=== PATIENT | female | born 1965 | race Two or more races ===

== ENCOUNTER 2021-10-17 13:39 | Outpatient (CLI) | payer OTHER | END 2021-10-17 23:59 | disposition home or self-care (01) | LOC: LAB 13:39 | PROVIDERS: ATTEND Specialist | DX: Z01.812 Encounter for preprocedural laboratory examination (principal); Z20.822 Contact with and (suspected) exposure to COVID-19 | CPT/HCPCS: C9803; U0003 ==

== ENCOUNTER 2021-10-28 05:06 | Inpatient (IN) | payer OTHER ==
[2021-10-28] VITALS (14 sets, daily range): BP systolic 100–150; BP diastolic 58–86
[~2021-10-28] VITALS: Ht 149.9 cm; Wt 92.1 kg
--- NOTE | 2021-10-28 05:11 | NUR ---
GAS PRODUCER NOTES ADMITTED THIS 56 YO FEMALE PATIENT FROM HOME; AMBULATORY WITH WALKER. PATIENT IS AWAKE, ALERT AND ORIENTED X4, MOHAWK SPEAKING. BREATHING IS EVEN AND NONLABORED. VS TAKEN AND RECORDED FOLLOWS: BP 150/86 MM HG, CT 69 BPM, RR 18 BPM, TEMP 98.2, POX 96%. NOT IN ANY FORM OF RESPIRATORY DISTRESS. PATIENT IS FOR RIGHT TOTAL KNEE ARTHROPLASTY WITH CONSTRAINED PROSTHESIS. INFORMED CONSENT SIGNED BY THE PATIENT WITH PROCESS ENG AT BEDSIDE. ABLE TO MAKE NEEDS KNOWN. ALL BELONGINGS WRITTEN IN THE INVENTORY LIST. SAFETY MEASURES IMPLEMENTED: CALL LIGHT AND TABLE WITHIN REACH, SIDE RAILS UP X2, BED IN LOWEST LOCKED POSITION. WILL CONTINUE TO MONITOR.
[2021-10-28] MEDS ORDERED: ANESTHESIA TRAY IN PYXIS 1 EA TRAY MC ONE (05:53)
[2021-10-28] MEDS ORDERED: POLYMYXIN B SULFATE 500,000 UNITS ONE (05:53)
[2021-10-28] MEDS ORDERED: BUPIVACAINE 0.5 % PF 150 MG/30 ML VIAL ONE ×2 (05:53→06:29)
--- NOTE | 2021-10-28 06:11 | NUR ---
RN NOTES PATIENT WAS PICKED UP SURGERY STAFF.
[2021-10-28] MEDS ORDERED: HYDROMORPHONE INJ 2 MG/ML DISP.SYRIN ONE (06:28)
[2021-10-28] MEDS ORDERED: TRANEXAMIC ACID 3,000 MG in SODIUM CHLORIDE IRRIG SOLUTION 70 ML IR ONE (06:30)
[2021-10-28] MEDS ORDERED: FENTANYL PF 100MCG/2ML AMPUL ONE (08:55)
[2021-10-28] MEDS ORDERED: ACETAMINOPHEN 325 MG TABLET PO PRN (09:00)
[2021-10-28] MEDS ORDERED: ONDANSETRON HCL/PF 4 MG/2 ML VIAL IVP PRN (09:00)
[2021-10-28] MEDS ORDERED: HYDROCODONE/APAP 5/325MG TABLET PO PRN (09:00)
[2021-10-28] MEDS ORDERED: BISACODYL SUPP (10 MG) 10 MG/SUPP.RECT SUPP.RECT RC PRN (09:00)
[2021-10-28] MEDS ORDERED: DOCUSATE SODIUM 250 MG CAPSULE PO PRN (09:00)
[2021-10-28] MEDS ORDERED: hydrALAZINE HCL IV 20 MG VIAL ONE (09:15)
[2021-10-28] MEDS ORDERED: diphenhydrAMINE HCL 25 MG CAPSULE PO PRN (09:30)
[2021-10-28] MEDS ORDERED: HYDROMORPHONE 1 MG/1 ML DISP.SYRIN IM/IV/SC PRN (09:30)
[2021-10-28] MEDS ORDERED: MAG HYDROX/AL HYDROX/SIMETH 30 ML UDC PO PRN (09:30)
[2021-10-28] MEDS ORDERED: MENTHOL/CETYLPYRD (CEPACOL) 1 LOZ LOZENGE PO PRN (09:30)
[2021-10-28] MEDS ORDERED: CLONIDINE HCL 0.1 MG TABLET PO PRN (09:30)
--- NOTE | 2021-10-28 10:05 | NUR ---
RN ADMITTING NOTES: RECEIVED PATIENT FROM OPERATING ROOM S/P RIGHT KNEE TOTAL ARTHROPLASTY, ACCOMPANIED BY TRANSPORTER VIA BED. PATIENT ALERT, SLEEPY. CZECH SPEAKING A/O X3. DENIES PAIN AT THIS TIME. ON O2 INHALATION @ 2LPM VIA NC TOLERATING WELL FOR COMFORT. VS WNL BP 132/81, RR18, 96%,97.8f, ON CONTINUOUS VS MONITORING . RECEIVED REPORT FROM OPERATING ROOM NURSE. PATIENT NOTED WITH RIGHT HAND G#20 IV D5 1/2 NS @125ML/HR INFUSING WELL. NOTED WITH RIGHT KNEE DRESSING INTACT AND IMMOBILIZER,SECURED AND NO DISCHARGE NOTED. WILL MONITOR FOR ANY SIGNIFICANT CHANGES AND REPORT TO .
[2021-10-28] MEDS: IV D5/0.45 NACL 1,000 ML IV PRN ×2 (11:06→22:00)
--- NOTE | 2021-10-28 11:30 | NUR ---
RN NOTES: RESIDENT NOTED WITH NAUSEA AND VOMITING. NOTED WITH SCANTY VOMITUS YELLOWISH GREEN IN COLOR. OFFERED ICE CHIPS REFUSED. ELEVATED THE HEAD PART OF THE BED TURNED PATIENT TO SIDE. ZOFRAN IV GIVEN.
--- NOTE | 2021-10-28 11:32 | NUR ---
SS Note: Pt. is 56-year-old female that presents to the hospital for Post OP total knee arthroplasty. Pt. is alert and oriented x2/3. Per pt., she resides with her and son. Pt. uses a walker as needed. Pt. just got out of surgery this morning and is restless. CINDY was able to interview pt. for a minute and pt. asked to come back later. SW will follow-up at a later time.
[2021-10-28] MEDS: ANCEF 1 GM/50 ML D5W IV SCH ×4 (15:14→22:00)
--- NOTE | 2021-10-28 16:47 | NUR ---
RN NOTES: DR DEXTER ORDERED TO TRY NORCO WITH DINNER TO TEST NORCO DOSE FOR TOLERANCE AND EFFICACY.
--- NOTE | 2021-10-28 16:47 | NUR ---
RN NOTES: PATIENT ASKED FOR PANTOPRAZOLE 20MG PO TWO TIMES A DAY BEFORE BREAKFAST AND DINNER, MD MADE AWARE AND ORDERED PANTOPRAZOLE 20MG/CAP BID BEFORE MEALS. ORDER NOTED AND CARRIED OUT.
[2021-10-28] MEDS: PANTOPRAZOLE 40 MG TABLET.DR PO SCH ×3 (16:52→22:00)
[2021-10-28] MEDS: DOCUSATE SODIUM 100 MG CAPSULE PO SCH (17:00)
--- NOTE | 2021-10-28 18:30 | NUR ---
RN NOTES: (-) NAUSEA, ENCOURAGED PATIENT TO EAT DINNER. ABLE TO TOLERATE FOOD, HELPED THE PATIENT ABLE TO FINISHED 80% OF HER DINNER. INFORMED PATIENT I WILL GIVE HER PAIN MEDS PER MD ORDER. TRANSLATE AND PT VERBALIZED UNDERSTANDING.
[2021-10-28] MEDS: HYDROCODONE/APAP 10/325MG TABLET PO PRN (18:37)
--- NOTE | 2021-10-28 18:47 | NUR ---
MS RN CLOSING NOTES: PATIENT IN BED, WELSH SPEAKING. A/OX4 AND ABLE TO VERBALIZED NEEDS. IN BEDSIDE SALES TRAINING REPRESENTATIVE. NO SOB OR CARDIAC DISTRESS NOTED, CURRENTLY ON ROOM AIR AND TOLERATING WELL. WITH IV ACCESS ON R HAND G#20 INFUSING D5 1/2 NS @15ML/HR PATENT AND INTACT. WITH R KNEE DRESSING AND IMMOBILIZER, PATENT AND INTACT WITH NO SIGN OF ANY DISCHARGES. SAFETY PRECAUTION MAINTAINED: BED IN LOWEST AND LOCKED POSITION, CALL LIGHT IN EASY REACH FOR HELP/ASSISTANCE. WILL MONITOR FOR ANY SIGNIFICANT CHANGES. ENDORSED TO NEXT SHIFT FOR CONTINUITY OF CARE.
--- NOTE | 2021-10-28 19:30 | NUR ---
MS/RN OPENING NOTE RECEIVED PATIENT SLEEPING IN BED. FAMILY AT BEDSIDE. PATIENT IS ALERT AND ORIENTED X 4. PRIMARILY KINYARWANDA SPEAKING. DENIES PAIN AT THIS TIME. CONTINUES ON ROOM AIR WITH NO S/SX OF RESPIRATORY DISTRESS NOTED. IV ACCESS TO RIGHT HAND #20G INTACT AND PATENT. CONTINUES ON IVF D5 1/2 NS @ 125ML/HR. CONTINUES ON IV ABX POST-OP. CONTINUES ON REGULAR DIET WITH NO S/SX OF NAUSEA/VOMITING/ASPIRATION NOTED. CALL LIGHT WITHIN REACH. ASPIRATION, FALL AND SAFETY PRECAUTIONS MAINTAINED. ALL NEEDS ATTENDED TO AT THIS TIME.
[2021-10-28] MEDS ORDERED: ZOLPIDEM TARTRATE 5 MG TABLET PO PRN (22:00)
--- NOTE | 2021-10-29 06:40 | NUR ---
MS/RN CLOSING NOTE PATIENT CURRENTLY SLEEPING IN BED. ALERT AND ORIENTED X 4. PRIMARILY VIETNAMESE SPEAKING. DENIES PAIN AT THIS TIME. CONTINUES ON ROOM AIR WITH NO S/SX OF RESPIRATORY DISTRESS NOTED. IV ACCESS TO RIGHT HAND #20G INTACT AND PATENT. CONTINUES ON IVF D5 1/2 NS @ 125ML/HR. CONTINUES ON IV ABX POST-OP. CONTINUES ON REGULAR DIET WITH NO S/SX OF NAUSEA/VOMITING/ASPIRATION NOTED. CALL LIGHT WITHIN REACH. ASPIRATION, FALL AND SAFETY PRECAUTIONS MAINTAINED. ALL NEEDS ATTENDED TO AT THIS TIME. WILL ENDORSE PLAN OF CARE TO ONCOMING SHIFT RN.
[2021-10-29 07:05] LABS: HEMOGLOBIN 11.4 g/dL (11.5-14.8)
--- NOTE | 2021-10-29 07:33 | NUR ---
MS RN OPENING NOTE RECEIVED PATIENT AWAKE IN BED. PATIENT IS ALERT AND ORIENTED X 4 AND CYPRIOT SPEAKER. NO PAIN NOTED AT THIS TIME. ON ROOM AIR, NO S/SX OF RESPIRATORY DISTRESS NOTED. IV ACCESS TO RIGHT HAND #20G INTACT AND PATENT. CONTINUES ON IVF D5 1/2 NS @ 125ML/HR. NO NAUSEA/VOMITING/ASPIRATION NOTED. ALL SAFETY MEASURES IN PLACE .CALL LIGHT AND TABLE WITHIN REACH. ASPIRATION, FALL AND SAFETY PRECAUTIONS MAINTAINED. WILL CONTINUE TO MONITOR.
[2021-10-29] MEDS: PANTOPRAZOLE 40 MG TABLET.DR PO SCH ×2 (07:50→16:16)
[2021-10-29 08:00] VITALS: BP 117/70
[2021-10-29] MEDS ORDERED: PANT40TA49 PO (08:17)
[2021-10-29] MEDS: DOCUSATE SODIUM 100 MG CAPSULE PO SCH ×2 (09:11→16:16)
[2021-10-29] MEDS: ASPIRIN 325 MG TABLET PO SCH (09:11)
[2021-10-29] MEDS: HYDROCODONE/APAP 10/325MG TABLET PO PRN ×2 (09:11→15:25)
--- NOTE | 2021-10-29 13:58 | NUR ---
SS Consult: SS Consult requested for safe DC planning. The pt. is a 56-year-old female patient that was had a Right total knee Arthroplasty. Upon SS consult, the pt. is A&O x 4 and makes appropriate eye contact. The pt. appears well-groomed and presents with a euthymic mood and affect. Pt. denies current SI/HI and denies current hallucinations. Pt. has normal thought process and speech is WNL. Pt.s , is currently at bedside. CINDY gathered collateral information. CINDY explored pt.s living situation. Per the pt., her and her , Arnulfo Brunson [phone] and son reside at home [[address] [place] [address]]. Per pt.s daughter, Suzie Brunson [phone] the pt. has about 5 steps to get into her home and the pt. and family rather the pt. go to a SNF of [facility]. Noted. CINDY explored pt.s drug & ETOH use. Pt. denies drug or alcohol use. CINDY explored pt.s mental health Hx. Patient denies mental health diagnosis. SW explored if pt. received financial assistance. Pt. denies any financial assistance. Per, pt. she has a front wheel walker and a rollator walker at home and a shower chair but no wheelchair. CINDY provided pt. with resources including caregiving, transportation, meals, DME etc. Pt. thanked CINDY and state she will try to apply for disability benefits. Noted. Plan: Pt. stated she would like to go to an acute rehab unit or SNF. CINDY discussed with CM who stated that a document needs to be completed as pt. is here ddure to workers comp case. Noted. CINDY provided pt. with the following resources and she accepted them. ABUSE PREVENTION: ELDER ABUSE HOTLINE (15/12) ADULT PROTECTIVE SERVICES HOTLINE LONG-TERM CARE [facility] AREA ON AGING (HOTLINE) ADULT DAY HEALTH CARE CARE CENTERS: Private pay or Medi-cheri funded adult day care [facility] Day Health Care [facility] , [facility] , [facility] Adult [facility] Center , [facility] Day Health Care , [facility] Day Health Care , [facility] Adult Daycare Center , [facility] , [place] [facility] , [place] ALZHEIMERS DISEASE/DEMENTIA: Alzheimers Association Helpline [facility] Chapter www.alz.org/[facility] Department of Aging www.lacity.org Family Caregiver [place] www.caregiver.org [place] Caregiver Resources Center/Family Support www.[facility].org CANCER RESOURCES: [place] Cancer Society www.cancer.org Cancer Support Community www.CancerSupportVvsb.org: CancerCare www.cancercare.org [facility] Cancer Support [place] www.[facility].org COMMUNITY HEALTH ASSOCIATIONS: AARP www.aarp.org ALS Association (ask for Concepción) www.als.org [place] Diabetes Association www.diabetes.org [place] Heart Association www.heart.org Iceland[place] Lung Association www.lungusa.org Icelandic Parkinson Disease Association www.apdaparkinson.org [place] , www.redcross.org Arthritis Foundation www.arthritis.org Crohns & Colitis Foundation of [place]ic www.ccfa.org/chapters/carlos National Multiple Sclerosis Society www.nationalmssociety.org Myasthenia Gravis Foundation www.myasthenia-ca.org National Stroke Association www.stroke.org CONSERVATORSHIP & GUARDIANSHIP: AARP Conchita Orellana Legal Services Center for Health Care Rights Eldercare Information and Referral Pecan Grower Foundation [facility]: [facility] Referral Service [facility] Legal Services Office of the Public Guardian [place] EYESIGHT DISORDER RESOURCES: [place] Macular Degeneration Foundation [facility] www.[facility].org GRIEF AND BEREAVEMENT RESOURCES: The Gathering Place , [facility] THE HOPE Connection , [facility] Bere[facility]ment Center , [place] HEARING DISORDER RESOURCES: [place] Telephone Access Program Deaf and Disabled Telecommunications Program www.ddtp.cpu.ca.gov HearRx Hearing Centers ([place]) Better Hearing Systems , [place] GLAD ([facility] Agency on Deafness) V/ TTY; Cabinet Finisher , [facility] Hearing [facility] -low income hearing aid assistance www.HoozOnhearingfoundation.org [place] Hearing Care , Mariela HELP AT HOME CAREGIVER SUPPORT: In Home Support Services (Must have Medi-Cheri to be eligible) *Ask for a list of agencies that provide services to assist with care in the home. Local Senior Centers also have listings of care providers. HOME SAFETY MODIFICATIONS AND EQUIPMENT: Senior centers have additional referrals. [place] Housing and Community Investment Dept. Handyworker Program (low income) or Visit http://hcidla.lacity.org/hvi-zmbioh-vv for more information National Seating and Mobility and/or ; Forever Active www.foreverRegulatoryBindermed.com Stay Home Safe www.Stayhomesafe.com LIFE ALERT RESPONSE SYSTEM: Lifebooker.com Services 148-673-7450 www. Owlr Life Alert 013-946-0453 www.iHealth Labs Life Station 024-659-0580 www.KiwiTech Safe Return 168-302-2517 www.alz.or/safereturn Cell Phones for Seniors www.Second Genome MEALS AND FOOD PROGRAMS: [place] Meals on Wheels [phone] Welcome Meals on Wheels [phone] [facility] [phone] [place] to the Homebound [phone] [place] to the Homebound [phone] [facility] to the Homebound [phone] [facility] to the Homebound [phone] [facility] Montez [place] [phone] [facility] [phone] ONE Generation [phone] [facility] [phone] [facility] [phone] Meals on Wheels [phone] For all ages: $6.85/ meal w side. Delivered M-F from 10 am-1pm. Application and payment is done over the phone. Frozen meals available for weekends. Emergency Food [facility] [phone] Yazdanism Community Coordinator For High School [phone] [facility] [phone] Karlos Yazdanism[facility]- Brown bag lunches [phone] [facility] [phone] MEAL/GROCERY DELIVERY PROGRAMS: Meño Jovelmet Meals [phone]- [facility] [phone]- [facility] Magic Kitchen [phone] Moms Meals [phone] (ask Martínez for Discount Select grocery stores may provide delivery. MEDICAL INSURANCE SUPPORT SERVICES: Center for Health Care Rights [phone] Health Insurance Counseling/Advocacy Programs (HICAP)-Must have Medicare. Offers counseling for Medi-Cheri eligibility [phone] [facility] Public Community Coordinator For High School [phone] www.[facility].ca.gov Medicare [phone] www.socialsecurity.org Social Security [phone] SENIOR ACTIVITY PROGRAMS: *Contact a local senior center, adult school, recreation facility or community college for education, fitness, recreation, and social programs. Aquatic Therapy and Adapted Exercise programs through [facility] [phone] En[facility] at [facility] [phone] www.[facility] services/encore U- Senior Friends [phone] [place] Senior Programs [phone] www.oasisnet.org Suddenly 65 www.rgsjuxvn95.com SENIOR CENTERS: [facility] [phone] [facility] [place] [phone] [facility] [phone] [facility] [phone] [facility] [phone] [facility] [phone] [facility] [phone] [facility] [phone] One Generation, [facility] [phone] [facility] [phone] [facility] [phone] [facility] [phone] [facility] [phone] TRANSPORTATION: Local [facility] Centers may have applications for transportation programs and additional resources. ACCESS Services [phone] Transportation for seniors and disabled persons 7 days a week requiring 254 hr. advance reservation. Must apply and register for program bernard eligible. GRAM Acquisition [phone] or [phone] Transportation for seniors and persons with ADA card/metro disabled card in the [facility]. M-F only. Must register for services. ONE GENERATION [phone] Serves 65 years + in conjunction with TapMee program. Must be registered with both programs. A to B Transport [phone] Provides wheelchair/gurney van service. Adult Medical Transport [phone] Accepts Medi-cheri with prior authorization. Care Van [phone] Provides wheelchair Transport. [facility] Wide Transportation [phone] Provides gurney service Gentle [facility] [phone] Gurney Transport. [facility] Town Transportation [phone] wheelchair & gurney transport D Transportation [phone] wheelchair & gurney transport [place] Non-Emergency Transport [phone] wheelchair & gurney transport [facility] Living [place] [phone] Short Term Transportation primarily for adults with disabilities on social security income. Nominal fee may apply and a reservation is required. 24Fundraiser.com Cab [phone] or [phone] ShareWithU [facility] [phone] [place] [address] Referral Services -[phone] For additional programs & services VETERANS RESOURCES: Submissions for Aid and Attendance should be done directly to Federal VA office locatd at : [address] [address] X110 National Caregiver Support Line [phone] [facility] Veterans Services Field Office [phone] [place] Department of Affairs [phone] Pension Inform
[2021-10-29 16:00] VITALS: BP 147/76
[2021-10-29] MEDS: IV D5/0.45 NACL 1,000 ML IV PRN (17:26)
--- NOTE | 2021-10-29 18:24 | NUR ---
MS RN CLOSING NOTE RECEIVED PATIENT AWAKE IN BED. PATIENT IS ALERT AND ORIENTED X 4 AND ALGERIAN SPEAKER. NO PAIN NOTED AT THIS TIME. ON ROOM AIR, NO S/SX OF RESPIRATORY DISTRESS NOTED. IV ACCESS TO RIGHT HAND #20G INTACT AND PATENT. CONTINUES ON IVF D5 1/2 NS @ 125ML/HR. NO NAUSEA/VOMITING/ASPIRATION NOTED. ALL DUE MEDS GIVEN ORDERED. PATIENT AT HER BED SIDE. ALL SAFETY MEASURES IN PLACE .CALL LIGHT AND TABLE WITHIN REACH. ASPIRATION, FALL AND SAFETY PRECAUTIONS MAINTAINED. WILL ENDORSE FOR STEPHANIE.
[2021-10-29 20:00] VITALS: BP 138/87
[2021-10-29] MEDS: SENNOSIDES 8.6 MG TABLET PO PRN (20:07)
--- NOTE | 2021-10-30 06:46 | NUR ---
MS RN CLOSING NOTE PATIENT AWAKE IN BED, ALERT/ORIENTED X 4, PATIENT ABLE TO MAKE NEEDS KNOWN, PT TAIWANESE SPEAKING ONLY. PATIENT STABLE ON RA, NO S/S OF DISTRESS OR SOB NOTED, BREATHING EVEN AND UNLABORED. RIGHT KNEE DRESSING CLEAN, DRY AND INTACT, TO BE CHANGED BY MD ONLY PER ORDERS. RIGHT HAND #20G IV ACCESS INTACT AND INFUSING D51/2 NS @ 125 ML/HR. PATIENT CONTINENT, USES BED COLUNGA. MEDICATIONS GIVEN ORDERED, PATIENT NEEDS MET THROUGHOUT SHIFT. NO SIGNIFICANT CHANGES. SAFETY MEASURES IN PLACE: CALL LIGHT WITHIN REACH, SIDE RAILS UP X 2, BED LOCKED IN LOWEST POSITION, BED ALARM ON. WILL ENDORSE TO DAY SHIFT NURSE FOR CONTINUITY OF CARE
[2021-10-30 08:00] VITALS: BP 135/73
--- NOTE | 2021-10-30 08:13 | NUR ---
MS RN OPENING NOTE Patient in bed, awake. A/O x 4, Welsh speaking. On room air, breathing evenly and unlabored. No SOB or s/s/ of distress noted. IV access on Right hand #20 infusing D5 1/2 NS at 125 ml/hr. Safety precautions in place: bed in low, locked position; siderails up x 2; call light within reach,. Will continue to monitor.
[2021-10-30] MEDS: DOCUSATE SODIUM 100 MG CAPSULE PO SCH ×2 (09:07→16:20)
[2021-10-30] MEDS: ASPIRIN 325 MG TABLET PO SCH (09:07)
[2021-10-30] MEDS: PANTOPRAZOLE 40 MG TABLET.DR PO SCH ×2 (09:07→16:20)
[2021-10-30 16:00] VITALS: BP 121/67
--- NOTE | 2021-10-30 16:20 | NUR ---
RN NOTE Patient's temp is 100.1. PRN Tylenol given. Dr. Hasmukh See notified. Will continue to monitor.
--- NOTE | 2021-10-30 16:24 | NUR ---
RN NOTE Patient complained of bloating in the stomach, PRN Maalox given. Will continue to monitor.
--- NOTE | 2021-10-30 18:43 | NUR ---
MS RN CLOSING NOTE Patient in bed, resting. A/O x 4, Sammarinese speaking. Stable on room air, breathing evenly and unlabored. No SOB or s/s/ of distress noted. IV access on Right hand #20 infusing D5 1/2 NS at 125 ml/hr. Due meds given. All needs attended to. Safety precautions maintained: bed in low, locked position; siderails up x 2; call light within reach. Will endorse to night cleaner nurse for STEPHANIE.
--- NOTE | 2021-10-30 19:30 | NUR ---
MS RN NOTES RECEIVED ON BED A/O X4,SPEAK MEXICAN,VISITOR AT BEDSIDE.S/P RIGHT TOTAL KNEE ARTHROPLASTY ON 10/28,DRESSING INTACT AND DRY,PAIN TOLERABLE AT THE MOMENT,PRESENT IVF INFUSING WELL ON RIGHT HAND VIA IV PUMP.SITE PATENT.VISITOR AT BEDSIDE.DVT PUMP IN USED FOR DVT PROPHYLAXIS.CALL LIGHT IN REACH,NEEDS ANTICIPATED.
[2021-10-30 20:00] VITALS: BP 109/67
--- NOTE | 2021-10-30 23:00 | NUR ---
MS RN NOTES AWAKE,VOIDED PER BEDPAN,OFFERED PAIN MEDICINE BUT REFUSED,DENIES PAIN.
--- NOTE | 2021-10-31 02:00 | NUR ---
MS RN NOTES SLEEPING,KEPT WARM AND COMFORTABLE.
[2021-10-31] MEDS: IV D5/0.45 NACL 1,000 ML IV PRN (05:30)
--- NOTE | 2021-10-31 05:50 | NUR ---
MS RN NOTES DR DEXTER CALLED,MADE AWARE OF PATIENT STATUS REGARDING PAIN,THAT PATIENT REFUSED PAIN MEDS THAT WAS OFFERED 3 TIME,EXPLAINED BENEFITS BUT STILL REFUSED.DR DEXTER ORDERED TO PUT PATIENT SALINE LOCK AT THIS TIME,TOLERATED 100% OF HER MEAL.
--- NOTE | 2021-10-31 06:36 | NUR ---
MS RN NOTES SLEPT WELL AT NIGHT,DENIES PAIN,DVT PUMP IN USED,IV CONVERTED TO HEPLOCK ORDERED BY DR DEXTER.IN NO ACUTE DISTRESS.
--- NOTE | 2021-10-31 07:35 | NUR ---
MS RN OPENING NOTE Patient in bed, asleep. A/O x 4. On room air, breathing evenly and unlabored. No SOB or s/s/ of distress noted. IV access on Right hand #20 SL, intact and patent. Safety precautions in place: bed in low, locked position; siderails up x 2; call light within reach,. Will continue to monitor.
[2021-10-31] MEDS: PANTOPRAZOLE 40 MG TABLET.DR PO SCH ×2 (07:53→16:25)
[2021-10-31 08:12] VITALS: BP 116/56
[2021-10-31] MEDS: DOCUSATE SODIUM 100 MG CAPSULE PO SCH ×2 (08:49→16:26)
[2021-10-31] MEDS: ASPIRIN 325 MG TABLET PO SCH (08:50)
[2021-10-31 15:59] LABS: CALCIUM, SERUM 7.8 mg/dL (8.5-10.1); CREATININE 0.6 mg/dL (0.6-1.3); POTASSIUM 3.6 mmol/L (3.5-5.1)
[2021-10-31 16:28] VITALS: BP 95/54
--- NOTE | 2021-10-31 18:51 | NUR ---
MS RN CLOSING NOTE Patient in bed, resting. A/O x 4, able to make needs known. Stable on room air, breathing evenly and unlabored. No SOB or s/s of distress noted. IV access on Right hand #20 SL, intact and patent. All needs attended to. Due meds given. Safety precautions maintained: bed in low, locked position; siderails up x 2; call light within reach. Will endorse to window shade installer nurse for STEPHANIE.
--- NOTE | 2021-10-31 19:24 | NUR ---
MS RN OPENING NOTES RECEIVED PT LYING IN BED, HOB ELEVATED AT 70 DEGREES. A/O X4, CHINESE SPEAKING ONLY. BREATHING EVEN AND NON-LABORED ON ROOM AIR. C/O MILD PAIN BUT REFUSED MEDICATION. ASSISTED IN CHANGING POSITION. HAS RIGHT HAND IV ACCESS #20G AND SALINE LOCKED. NO S/S OF INFILTRATION NOTED. SAFETY PRECAUTIONS IN PLACE. WILL CONTINUE PLAN OF CARE.
[2021-10-31 20:00] VITALS: BP 114/65
[2021-10-31] MEDS: SENNOSIDES 8.6 MG TABLET PO PRN (23:28)
--- NOTE | 2021-10-31 23:30 | NUR ---
MS RN NOTES PT VERBALIZED HER LAST BM WAS ON 10/28/21. GAVE PT EDUCATION, VERBALIZED UNDERSTANDING. ADMINISTERED PRN SENOKOT. TOLERATED WELL. WILL CONT. TO MONITOR.
--- NOTE | 2021-11-01 06:32 | NUR ---
MS RN CLOSING NOTES PT LYING IN BED WITH EYES CLOSED. EASY TO AROUSE. A/O X4, PALAUAN SPEAKING ONLY. NO SOB OR , TOLERATING ROOM AIR WELL. NO ACUTE DISTRESS NOTED. AFEBRILE. DENIES PAIN AT THIS TIME. HAS RIGHT HAND IV ACCESS #20G AND SALINE LOCKED. INTACT, PATENT AND FLUSHING. ALL DUE MEDS GIVEN. NO BM DURING SHIFT. KEPT DRY AND COMFORTABLE. SAFETY MEASURES IN PLACE: BED LOW AND LOCKED, SIDE RAILS UP X2, CALL LIGHT WITHIN REACH.
--- NOTE | 2021-11-01 07:30 | NUR ---
MS RN OPENING NOTES: PATIENT AWAKE IN BED RESTING, A/O X4, ALGERIAN SPEAKING. DENIES PAIN AT THIS TIME. ON ROOM AIR, NO DISTRESS OR SHORTNESS OF BREATH NOTED. IV ACCESS RAC #20G, INTACT, PATENT AND FLUSHING WELL SALINE LOCKED. WITH BARON WRAP BANDAGE ON RIGHT KNEE, DRY AND INTACT. NO SIGN OF ANY UNUSUAL DRAINAGE. SAFETY PRECAUTIONS MAINTAINED: FALL AND SAFETY MEASURES IN PLACE, BED ALARM ON BED IN LOW AND LOCK POSITION, CALL LIGHT IN EASY REACH, SIDE RAILS UP X2.WILL MONITR ACCORDINGLY. KEPT RESTED AND COMFORTABLE.
[2021-11-01] MEDS: PANTOPRAZOLE 40 MG TABLET.DR PO SCH ×2 (08:03→16:07)
[2021-11-01] MEDS: ASPIRIN 325 MG TABLET PO SCH (08:47)
[2021-11-01] MEDS: DOCUSATE SODIUM 100 MG CAPSULE PO SCH ×2 (08:47→16:16)
--- NOTE | 2021-11-01 16:01 | NUR ---
RN NOTES: PATIENT HAD LARGE BM,VERBALIZED RELIEF.
[2021-11-01] MEDS ORDERED: RIVAROXABAN 10 MG TABLET PO SCH (17:00)
--- NOTE | 2021-11-01 18:40 | NUR ---
MS RN CLOSING NOTES: PATIENT IN BED RESTING, SINHALA SPEAKING A/O X 4 ABLE TO MAKE NEEDS KNOWN. IV ACCESS ON RIGHT HAND G#20 SALINE LOCKED PATENT AND INTACT. DENIES PAIN AT THIS TIME, FAMLY MEMBER AT BED SIDE. SAFETY PRECAUTIONS MAINTAINED: BED LOCKED AND IN LOWEST POSITION, SIDE RAILS UP X2, CALL LIGHT IN EASY REACH FOR HELP/ASSISTANCE. KEPT RESTED AND COMFORTABLE. ENDORSED TO RECORDING ENGINEER NURSE FOR CONTINUITY OF CARE.
--- NOTE | 2021-11-01 19:38 | NUR ---
MS RN OPENING NOTES RECEIVED PT SITTING ON CHAIR, ON BEDSIDE. A/O X4. WELSH SPEAKING. BREATHING EVEN AND NON-LABORED ON ROOM AIR. NOT IN APPARENT DISTRESS. DENIES PAIN AT THIS TIME. HAS RIGHT HAND IV ACCESS #20G AND SALINE LOCKED. NO S/S OF INFILTRATION NOTED. RIGHT KNEE BANDAGE DRY AND INTACT. SAFETY PRECAUTIONS IN PLACED. WILL CONTINUE PLAN OF CARE.
[2021-11-01 20:00] VITALS: BP 103/54
--- NOTE | 2021-11-02 06:16 | NUR ---
MS RN CLOSING NOTES PT LYING IN BED ASLEEP. EASY TO AROUSE. A/O X4. ANDORRAN SPEAKING. ABLE TO VERBALIZE NEEDS. NO C/O PAIN OR DISCOMFORT AT THIS TIME. NO ACUTE DISTRESS NOTED. NO SOB OR , TOLERATING ROOM AIR WELL. AFEBRILE. HAS RIGHT HAND IV ACCESS #20G AND SALINE LOCKED. INTACT, PATENT AND FLUSHING. RIGHT KNEE DRESSING AND BANDAGE C/D/I. ALL NEEDS ATTENDED. KEPT DRY AND COMFORTABLE. SAFETY PRECAUTIONS IN PLACED: BED LOW AND LOCKED, SIDE RAILS UP X2, CALL LIGHT WITHIN REACH.
--- NOTE | 2021-11-02 07:23 | NUR ---
RN OPENING NOTE PT LYING IN BED. A/O X4. ERITREAN SPEAKING. INTERACTIVE W RN. ABLE TO VERBALIZE NEEDS. DENIES PAIN. NO ACUTE DISTRESS NOTED, TOLERATING ROOM AIR WELL. AFEBRILE. HAS RIGHT HAND IV ACCESS #20G AND SALINE LOCKED. INTACT, PATENT AND FLUSHING. RIGHT KNEE DRESSING AND BANDAGE C/D/I. ALL NEEDS ATTENDED. SAFETY PRECAUTIONS IN PLACED: BED LOW AND LOCKED, SIDE RAILS UP X2, CALL LIGHT WITHIN REACH. MONITOR / ASSIST
[2021-11-02] MEDS: PANTOPRAZOLE 40 MG TABLET.DR PO SCH ×2 (07:57→16:57)
[2021-11-02 08:00] VITALS: BP 113/70
--- NOTE | 2021-11-02 08:31 | NUR ---
THERE IS O2 ORDER FOR PATIENT BUT PATIENT IS NOT ON O2 CURRENTLY. PATIENT SAT IS 96% ON R/A. SREE SINGER. Addendum: 11/02/21 at 0833 by CATHERINE SAAB RT Amended: Links added.
[2021-11-02] MEDS: ASPIRIN 325 MG TABLET PO SCH (09:16)
[2021-11-02] MEDS: DOCUSATE SODIUM 100 MG CAPSULE PO SCH ×2 (09:16→16:56)
[2021-11-02 16:00] VITALS: BP 112/68
--- NOTE | 2021-11-02 18:35 | NUR ---
RN OPENING NOTE PT IN ROOM W AT BEDSIDE. A/O X4. AMHARIC SPEAKING. INTERACTIVE W RN. ABLE TO VERBALIZE NEEDS. DENIES PAIN. NO ACUTE DISTRESS NOTED, TOLERATING ROOM AIR WELL. AFEBRILE. HAS RIGHT HAND IV ACCESS #20G. INTACT, PATENT AND FLUSHING. RIGHT KNEE DRESSING AND BANDAGE C/D/I. ALL NEEDS ATTENDED. SAFETY PRECAUTIONS IN PLACED: BED LOW AND LOCKED, SIDE RAILS UP X2, CALL LIGHT WITHIN REACH. MONITOR / ASSIST
--- NOTE | 2021-11-02 19:05 | NUR ---
RN NOTES: -RECEIVED AWAKE, A/OX4, PRESENT AT BED SIDE, PATIENT ABLE TO COMMUNICATE IN ARABIC A LITTLE, ORIENTED TO UNIT AND STAFF, PER ENDORSEMENT, DRESSING WILL BE CHANGE ONLY BY THE DOCTOR, RIGHT KNEE SURGICAL INCISION DRESSING COVERED WITH BARON BANDAGE WRAP DRY AND INTACT,NO DRAINAGE ON THE DRESSING, NO SIGN OF PAIN OR DISCOMFORT, CONTINENT BOTH BOWEL/BLADDER, WBAT-RLE, PER ENDORSEMENT AWAITING FOR ORTHO CLEARANCE TO D/C IN THE SNF. -FALL AND SAFETY PRECAUTION OBSERVED.
[2021-11-02 20:00] VITALS: BP 114/67
--- NOTE | 2021-11-03 02:00 | NUR ---
RN NOTES: ASLEEP IN THE NIGHT, AWAKE IN BETWEEN NEEDS ATTENDED, PASS URINE IN THE BED COLUNGA.
[2021-11-03 06:00] VITALS: BP 124/72
--- NOTE | 2021-11-03 07:31 | NUR ---
RN NOTES: -NO COMPLAINTS OF PAIN OR DISCOMFORT, ONLY DURING REPOSITIONING BUT TOLERABLE,NEEDS ATTENDED,DID NOT ASK FOR ANY PAIN MEDICATION IN THE NIGHT, TO F/U WITH CM REGARDING INSURANCE APPROVAL FOR SNF/REHAB. ENDORSED FOR CONTINUITY OF CARE.
--- NOTE | 2021-11-03 07:37 | NUR ---
RN OPENING NOTE PT ASLEEP, EASILY AWAKENED, A/O X4. VIETNAMESE SPEAKING. INTERACTIVE W RN. ABLE TO VERBALIZE NEEDS. DENIES PAIN. NO ACUTE DISTRESS NOTED, TOLERATING ROOM AIR WELL. AFEBRILE. HAS RIGHT HAND IV ACCESS #20G. INTACT, PATENT AND FLUSHING. RIGHT KNEE DRESSING AND BANDAGE C/D/I. ALL NEEDS ATTENDED. SAFETY PRECAUTIONS IN PLACED: BED LOW AND LOCKED, SIDE RAILS UP X2, CALL LIGHT WITHIN REACH. MONITOR / ASSIST
[2021-11-03] MEDS: PANTOPRAZOLE 40 MG TABLET.DR PO SCH ×2 (07:51→16:14)
[2021-11-03 08:00] VITALS: BP 112/64
[2021-11-03] MEDS: DOCUSATE SODIUM 100 MG CAPSULE PO SCH ×2 (08:29→16:14)
[2021-11-03] MEDS: ASPIRIN 325 MG TABLET PO SCH (08:29)
[2021-11-03 16:00] VITALS: BP 115/66
--- NOTE | 2021-11-03 18:44 | NUR ---
RN CLOSING NOTE PT AWAKE W FAMILY AT BEDSIDE, , A/O X4. EMIRATI SPEAKING. INTERACTIVE W RN. ABLE TO VERBALIZE NEEDS. DENIES PAIN. NO ACUTE DISTRESS NOTED, TOLERATING ROOM AIR WELL. AFEBRILE. HAS RIGHT HAND IV ACCESS #20G. INTACT, PATENT AND FLUSHING. RIGHT KNEE DRESSING AND BANDAGE C/D/I. ALL NEEDS ATTENDED. SAFETY PRECAUTIONS IN PLACED: BED LOW AND LOCKED, SIDE RAILS UP X2, CALL LIGHT WITHIN REACH. MONITOR / ASSIST
--- NOTE | 2021-11-03 19:53 | NUR ---
MS RN OPENING NOTES: RECEIVED PATIENT AWAKE IN BED, BED IN LOW POSITION CALL LIGHTS WITHIN REACH, NO COMPLAIN OF PAIN AND DISCOMFORT AT THIS TIME, PATIENT IS A/OX4 SLOVAK SPEAKING ON ROOM AIR SATURATING WELL, PATIENT IS S/P RT KNEE ARTHROPLASTY WITH DRESSING, WITH IV LINE AT RT HAND #20SL, PATIENT KEPT CLEAN AND DRY ALL NEEDS MET WILL CONTINUE TO MONITOR.
[2021-11-03 20:17] VITALS: BP 123/77
--- NOTE | 2021-11-04 06:45 | NUR ---
RN CLOSING NOTE: PATIENT SLEEP IN BED COMFORTABLY, AROUSABLE TO VERBAL STIMULI, BED IN LOW POSITION CALL LIGHTS WITHIN REACH, NO COMPLAIN OF PAIN AND DISCOMFORT AT THIS TIME, ON ROOM AIR SATURATING WELL, PATIENT IS S/P RT KNEE ARTHROPLASTY BANDAGE INTACT NO BLEEDING WAS NOTED, AMBULATE FROM BED TO COMMODE WITH ASSISTANCE, KEPT CLEAN AND DRY ALL NEEDS MET ENDORSE TO INCOMING SHIFT.
--- NOTE | 2021-11-04 07:48 | NUR ---
RN OPENING NOTE RECEIVED PATIENT AWAKE IN BED, BED IN LOW POSITION, CALL LIGHT WITHIN REACH, NO COMPLAINT OF PAIN AND DISCOMFORT AT THIS TIME, PATIENT IS A/OX4 JAPANESE SPEAKING ON ROOM AIR SATURATING WELL, PATIENT IS S/P RT KNEE ARTHROPLASTY WITH DRESSING, WITH IV LINE AT RT HAND #20, ALL NEEDS MET WILL CONTINUE TO MONITOR / ASSIST.
[2021-11-04] MEDS: ASPIRIN 325 MG TABLET PO SCH (08:29)
[2021-11-04] MEDS: DOCUSATE SODIUM 100 MG CAPSULE PO SCH (08:29)
[2021-11-04] MEDS: PANTOPRAZOLE 40 MG TABLET.DR PO SCH (08:29)
--- NOTE | 2021-11-04 09:29 | NUR ---
PATIENT ON R/A WITH SAT 94% W/O DISTRESS. Addendum: 11/04/21 at 0930 by CATHERINE SAAB RT Amended: Links added.
[2021-11-04] MEDS ORDERED: DOCU100C36 PO (12:15)
[2021-11-04] MEDS ORDERED: CLON0.1T PO (12:15)
[2021-11-04] MEDS ORDERED: ACET325T53 PO (12:15)
[2021-11-04] MEDS ORDERED: PANT40TA49 PO (12:15)
[2021-11-04] MEDS ORDERED: HYDR-3980 PO (12:15)
[2021-11-04] MEDS ORDERED: ASPI-992 PO (12:15)
--- NOTE | 2021-11-04 13:51 | NUR ---
RN NOTE- DRESSING CHANGE TO RT KNEE. CLEAN INTACT, NO ERYTHEMA OR EXUDATE, NO DEHISCENCE. TREVER INTACT AND EDGES WELL-APPROXIMATED. DRY STERILE DSG APPLIED. TOLERATED WELL. PHOTOS TAKEN FOR CHART AND PLACED
--- NOTE | 2021-11-04 16:40 | NUR ---
RECOVERY COLLECTOR NOTE- PT DC TO HOME W FAMILY AT THIS TIME. VS STABLE, SURGICAL SITE DRSG CHANGED AND PHOTOS TAKEN FOR CHART. KNEE BRACE IN PLACE. ASSISTED TO JASMYNE BY STAFF. ID WRISTBAND REMOVED, IV HEP LOCK REMOVED, DC INSTRUCTIONS GIVEN AND UNDERSTOOD. ESCORTED OFF UNIT BY STAFF
== END 2021-11-04 16:40 | disposition home or self-care (01) | DRG 470 ==
LOC: DS 05:06 → MED 05:07
PROVIDERS: ADMIT Internal Medicine; ATTEND Nurse Practitioner Acute Care
PROC: 0SRC0J9 Replacement of Right Knee Joint with Synthetic Substitute, Cemented, Open Approach (ICD-10-PCS; principal; 2021-10-28)
DX: M17.11 Unilateral primary osteoarthritis, right knee (principal); Z68.41 Body mass index [BMI] 40.0-44.9, adult; K21.9 Gastro-esophageal reflux disease without esophagitis; E66.01 Morbid (severe) obesity due to excess calories; X58.XXXA Exposure to other specified factors, initial encounter; Y99.0 Civilian activity done for income or pay
CPT/HCPCS: 36415; 80048-TC; 82962-TC; 85027-TC; 86850-TC; 87081-TC; 88305-TC; 88311-TC; 94799-TC; 97110-TC; 97116-TC; 97530-TC; 97760-TC; A4217; C1713; C1776; G0378; J0360; J0690; J1100; J1170; J2405; J2704; J2765; J3010; J3490; J7030; J7050; J7060; L1830

== ENCOUNTER 2022-06-26 11:28 | Outpatient (CLI) | payer OTHER ==
[~2022-06-26 11:28] MED LIST: ACET325T53 PO; ASPI-992 PO; CLON0.1T PO; DOCU100C36 PO; HYDR-3980 PO; PANT40TA49 PO
== END 2022-06-26 23:59 | disposition home or self-care (01) ==
LOC: LAB 11:28
PROVIDERS: ATTEND Specialist
DX: Z01.812 Encounter for preprocedural laboratory examination (principal); Z20.822 Contact with and (suspected) exposure to COVID-19
CPT/HCPCS: U0003; C9803

== ENCOUNTER 2022-07-03 05:08 | Inpatient (IN) | payer OTHER ==
[~2022-07-03 05:08] MED LIST changes: +ANESTHESIA TRAY IN PYXIS 1 EA TRAY MC ONE
--- NOTE | 2022-07-03 05:45 | NUR ---
RN opening notes Pt arrived at the unit accompanied by Pt's . Pt is scheduled for L TKA with lateral release with Dr. Gomez. Pt is alert and orientedX4. Pt speaks Turkish and able to make needs known. On room air. No SOB. IV sites at R hand# 18 is clean, intact with good blood returned. Pt signed the consent for procedure. Pt's skin is intact. Pt's belonging was given to Pt's . Pt is NPO since last night. Reorient Pt to the room and the use of call light. Pt and Pt's are aware and verbalize understanding. Safety precautions is maintained. Bed at low position, brakes locked, side rails upX2, hob elevated, bed alarm is on, hob elevated and call light is within reach. will continue to monitor.
[2022-07-03 06:00] VITALS: BP 161/92
[2022-07-03] MEDS ORDERED: MIDAZOLAM HCL 2 MG/2ML VIAL ONE (06:13)
[2022-07-03] MEDS ORDERED: HYDROMORPHONE INJ 2 MG/ML DISP.SYRIN ONE (06:13)
[2022-07-03] MEDS ORDERED: FENTANYL PF 250MCG/5ML AMPUL ONE (06:13)
--- NOTE | 2022-07-03 06:13 | NUR ---
RN notes Picked up by OR tech. Consent signed by Pt. PT is NPO since last night at 2200. Pt's belonging was given to Pt's .
[2022-07-03] MEDS ORDERED: ROCURONIUM BROMIDE 50 MG/5 ML ONE (06:14)
[2022-07-03] MEDS ORDERED: FAMOTIDINE/PF INJ 20 MG/2 ML VIAL IV ONE (06:14)
[2022-07-03] MEDS ORDERED: POLYMYXIN B SULFATE 500,000 UNITS ONE (06:21)
--- NOTE | 2022-07-03 06:24 | NUR ---
RN closing notes Pt is in OR. Will endorse to am nurse for STEPHANIE.
[2022-07-03] MEDS ORDERED: TRANEXAMIC ACID 3,000 MG in SODIUM CHLORIDE IRRIG SOLUTION 70 ML IR ONE (07:00)
[2022-07-03] MEDS ORDERED: diphenhydrAMINE HCL 25 MG CAPSULE PO PRN (08:30)
[2022-07-03] MEDS ORDERED: HYDROCODONE/APAP 10/325MG TABLET PO PRN (08:30)
[2022-07-03] MEDS ORDERED: ONDANSETRON HCL/PF 4 MG/2 ML VIAL IV PRN ×2 (08:30→10:00)
[2022-07-03] MEDS ORDERED: HYDROMORPHONE 1 MG/1 ML DISP.SYRIN ONE (09:27)
[2022-07-03] MEDS ORDERED: ONDANSETRON HCL/PF 4 MG/2 ML VIAL ONE (09:27)
[2022-07-03 09:37] LABS: HEMOGLOBIN 12.9 g/dL (11.5-14.8)
[2022-07-03] MEDS ORDERED: ZOLPIDEM TARTRATE 5 MG TABLET PO PRN (10:00)
[2022-07-03] MEDS ORDERED: ACETAMINOPHEN 325 MG TABLET PO PRN (10:00)
[2022-07-03] MEDS ORDERED: HYDROCODONE/APAP 5/325MG TABLET PO PRN (10:00)
[2022-07-03] MEDS ORDERED: DOCUSATE SODIUM 250 MG CAPSULE PO PRN (10:00)
[2022-07-03] MEDS ORDERED: IV D5/0.45 NACL 1,000 ML IV PRN (10:00)
[2022-07-03] MEDS ORDERED: SENNOSIDES 8.6 MG TABLET PO PRN (10:00)
[2022-07-03] MEDS ORDERED: BISACODYL SUPP (10 MG) 10 MG/SUPP.RECT SUPP.RECT RC PRN (10:30)
--- NOTE | 2022-07-03 10:30 | NUR ---
RN NOTES RECEIVED PATIENT FROM OR. PATIENT IS ALERT AND ORIENTED, A/O X4, TRANSPORTED ON A BED ACCOMPANIED BY 2 NURSES. PATIENT IS ON ROOM AIR WITH EQUAL AND UNLABORED BREATHING, WITH NO SIGNS OF RESPIRATORY DISTRESS. WITH IV ACCESS ON THE RIGHT HAND G18 ON SALINE LOCK, PATENT AND INTACT. S/P SURGERY ON THE LEFT KNEE COVERED WITH ELASTIC BANDAGE WITH IMMOBILIZER. DRESSING DRY AND INTACT. COMFORT MEASURES PROVIDED. SAFETY MEASURES ARE IN PLACED: BED IN LOWEST AND LOCKED POSITION; SIDE RAILS UP X 2; CALL LIGHT AND TABLE ARE WITHIN EASY REACH. PATIENT COMPLAINING OF PAIN 10/10 WITH OR NURSE AT BEDSIDE. PATIENT WAS GIVEN HYDROMORPHONE 0.5 AT 0933 AND 0953. VERIFYING PAIN MEDICATION WITH DR. DEXTER. COMFROT MEASURES PROVIDED. WILL CONTINUE WITH PLAN OF CARE.
[2022-07-03] MEDS: HYDROMORPHONE 1 MG/1 ML DISP.SYRIN IM/IV/SC PRN (11:03)
--- NOTE | 2022-07-03 11:05 | NUR ---
MS RN NOTE PATIENT COMPLAING OF PAIN ON THE LEFT KNEE. PAIN MEDICATION DILAUDID GIVEN IV ORDERED FOR PAIN. HEALTH TEACHING DONE REGARDING PAIN MANAGEMENT AND DISEASE PROCESS. COMFORT MEASURES PROVIDED.
[2022-07-03 12:00] VITALS: BP 164/102
[2022-07-03] MEDS ORDERED: HYDROCODONE/APAP 10/325MG TABLET PO ONE (12:00)
--- NOTE | 2022-07-03 12:06 | NUR ---
RN NOTE REASSESSED PATIENT FOR PAIN, STILL WITH SOME PAIN. DR. DEXTER NOTIFIED WITH ORDER TO GIVE NORCO X 1 DOSE. COMFROT MEASURES PROVIDED.
--- NOTE | 2022-07-03 12:45 | NUR ---
RN NOTE REASSESSED PATIENT. PATIENT NOW SLEEPING SOUNDLY. IN STABLE CONDITION.
[2022-07-03 15:57] VITALS: BP 164/103
--- NOTE | 2022-07-03 16:00 | NUR ---
MS RN NOTE PATIENT NOTED WITH EMESIS AND NAUSEATED. PATIENT GIVEN ZOFRAN INDICATED. MAINTAINED ON HIGH BACK REST. COMFORT MEASURES PROVIDED.
--- NOTE | 2022-07-03 16:40 | NUR ---
RN NOTE DR. DEXTER CALLED AND ORDERED TO GIVE PRN PAIN MEDICATION AFTER DINNER. WILL OFFER TO PATIENT AFTER DINNER. IN STABLE CONDITION.
[2022-07-03] MEDS: ANCEF 1 GM/50 ML D5W IV SCH ×4 (16:45→23:57)
--- NOTE | 2022-07-03 17:40 | NUR ---
RN NOTE OFFERED PAIN MEDICATION TO PATIENT, BUT PATIENT WAS REFUSING MEDICATION. SHE SAID SHE IS FINE. EXP[LAINED THAT MD ORDERED IT. SHE STILL REFUSED IT.
[2022-07-03] MEDS: MAG HYDROX/AL HYDROX/SIMETH 30 ML UDC PO PRN ×2 (18:00→23:43)
--- NOTE | 2022-07-03 18:00 | NUR ---
RN NOTE PATIENT COMPLAINED OF ABDOMINAL DISCOMFORT. SHE CLAIMS SHE HAVE HISTORY OF GASTRITIS. PATIENT GIVEN MAALOX. SHE SAID SHE TAKES MAALOX FOR THE DISCOMFORT SOMETIMES. MAALOX GIVEN AND COMFORT MEASURES PROVIDED. NOT IN DISTRESS.
--- NOTE | 2022-07-03 19:00 | NUR ---
RN NOTES PATIENT IS ALERT AND ORIENTED, A/O X4, AB;E TP MAKE NEEDS KNOWN. PATIENT IS ON ROOM AIR WITH EQUAL AND UNLABORED BREATHING, WITH NO SIGNS OF RESPIRATORY DISTRESS. WITH IV ACCESS ON THE RIGHT HAND G18 ON SALINE LOCK, PATENT AND INTACT. S/P SURGERY ON THE LEFT KNEE COVERED WITH ELASTIC BANDAGE WITH IMMOBILIZER. DRESSING DRY AND INTACT. COMFORT MEASURES PROVIDED. NO COMPLAIN OF PAIN. STILL REFUSE ANALGESIC AT THIS TIME. SAFETY MEASURES ARE IN PLACED: BED IN LOWEST AND LOCKED POSITION; SIDE RAILS UP X 2; CALL LIGHT AND TABLE ARE WITHIN EASY REACH. COMFORT MEASURES PROVIDED. ENDORSED TO NEXT SHIFT FOR CONTINUITY OF CARE.
--- NOTE | 2022-07-03 19:30 | NUR ---
MS RN OPENING NOTE RECEIVED PATIENT FROM AM NURSE; PATIENT IS ALERT AND ORIENTED X 4, ABLE TO MAKE NEEDS KNOWN; ON ROOM AIR BREATHING EVENLY AND NO RESPIRATORY DISTRESS NOTED; WITH IV ACCESS ON RIGHT HAND G18 - SALINE LOCK; ENCOURAGED VERBALIZATION OF NEEDS; VITAL SIGNS TAKEN; SAFETY PRECAUTIONS IMPLEMENTED, BED IN LOW POSITION, LOCKED, SIDE RAILS UP X 3, CALL LIGHT WITHIN REACH; WILL CONTINUE TO MONITOR THROUGHOUT SHIFT
[2022-07-03 20:00] VITALS: BP 147/87
--- NOTE | 2022-07-03 21:22 | NUR ---
MS RN NOTE PATIENT COMPLAINED OF MILD HEADACHE, OFFERED TYLENOL AND AGREED. HOWEVER, UPON PREPARING THE MEDICATION, PATIENT CHANGED HER MIND AND CHOSE NOT TO TAKE TYLENOL, WILL CONTINUE TO MONITOR PATIENT
[2022-07-04] VITALS: BP 146/91
--- NOTE | 2022-07-04 00:15 | NUR ---
MS RN NOTE PATIENT COMPLAINED OF PAIN WITH A SCORE OF 6/10, NORCO 10 ADMINISTERED, PATIENT TOLERATED WELL AND IS CURRENTLY ASLEEP
[2022-07-04] MEDS: PANTOPRAZOLE 40 MG TABLET.DR PO SCH (06:49)
--- NOTE | 2022-07-04 07:03 | NUR ---
MS RN CLOSING NOTE PATIENT IS ALERT AND ORIENTED X 4, ABLE TO MAKE NEEDS KNOWN; ON ROOM AIR BREATHING EVENLY AND NO RESPIRATORY DISTRESS NOTED; WITH IV ACCESS ON RIGHT HAND G18 - SALINE LOCK, INTACT AND PATENT; ADMINISTERED MEDICATIONS PRESCRIBED; PATIENT'S NEEDS ATTENDED; MONITORED ACCORDINGLY; SAFETY PRECAUTIONS IMPLEMENTED, BED IN LOW POSITION, LOCKED, SIDE RAILS UP X 3, CALL LIGHT WITHIN REACH; WILL ENDORSE TO AM NURSE FOR STEPHANIE.
--- NOTE | 2022-07-04 07:15 | NUR ---
RN OPENING NOTE Received patient in bed awake, a/o x4, verbally responsive and able to make needs known. Patient denies any pain at this time, per NOC Nurse pt refused to take pain meds as advised by MD. Patient stable in room air, breathing even and unlabored. on Tele monitoring showing SR, HR @99. Noted with IV access on right hand #18G, saline locked. Noted with elastic bandage on left knee surgical wound. Safety measure in place, bed in low and locked position, side rails up X2, call light placed within easy reach. Will continue to monitor patient.
[2022-07-04] MEDS ORDERED: ASPIRIN 325 MG TABLET PO SCH (09:00)
[2022-07-04] MEDS: MAG HYDROX/AL HYDROX/SIMETH 30 ML UDC PO PRN ×2 (10:31→18:31)
--- NOTE | 2022-07-04 11:00 | NUR ---
RN NOTE PATIENT SEEN AND EVALUATED BY PT.
[2022-07-04] MEDS: CALCIUM CARBONATE 500 MG TAB.CHEW PO SCH ×2 (11:10→21:55)
--- NOTE | 2022-07-04 11:13 | NUR ---
SS Note: SW consult requested for discharge planning. However, Case management is working on discharge planning. Per CM Note, pt. lives with , Arnulfo tel:[phone] at home [[address] [place] [phone]] and pt. wants to be return there when medically cleared. CM will assist with setting up transport. SW provided pt. with the following senior resources: ABUSE PREVENTION: ELDER ABUSE HOTLINE (15/12) ADULT PROTECTIVE SERVICES HOTLINE LONG-[facility] CARE [facility] AREA ON AGING (HOTLINE) ADULT DAY HEALTH CARE CARE CENTERS: Private pay or Medi-cheri funded adult day care [place] [facility] , [facility] , [facility] Adult Care Center , [facility] Adult Day Health Care , [facility] Adult Day Health Care , [facility] Adult Daycare Center , [place] [facility] Generation [facility] , [facility] Adult [place] , Stella ALZHEIMERS DISEASE/DEMENTIA: Alzheimers Association Helpline [facility] Chapter www.alz.org/[facility] Department of Aging www.lacity.org Family Caregiver [place] www.caregiver.org [place] Caregiver Resources Center/Family Support www.losangelesscrc.org CANCER RESOURCES: [place] Cancer Society www.cancer.org Cancer Support Community www.CancerSupportVvsb.org: CancerCare www.cancercare.org [facility] Cancer Support Center www.Adconion Media Group.org COMMUNITY HEALTH ASSOCIATIONS: AARP www.aarp.org ALS Association (ask for Concepción) www.als.org Lebanese Diabetes Association www.diabetes.org Lebanese Heart Association www.heart.org Lebanese Lung Association www.lungusa.org Lebanese Parkinson Disease Association www.apdaparkinson.org Lebanese [place] , www.redcross.org Arthritis Foundation www.arthritis.org Crohns & Colitis Foundation of Lebanese www.ccfa.org/chapters/elliotangeles National Multiple Sclerosis Society www.nationalmssociety.org Myasthenia Gravis Foundation www.myasthenia-ca.org National Stroke Association www.stroke.org CONSERVATORSHIP & GUARDIANSHIP: AAR [facility] Legal Services Center for Health Care Rights [place] Information and Referral Supervisor Extruding Department [facility] Emergency Department [facility]: [facility] Referral Service [facility] Legal Services Office of the Public Guardian [place] EYESIGHT DISORDER RESOURCES: Lebanese Macular Degeneration Foundation Braille [place] www.brailleinstitute.org GRIEF AND BEREAVEMENT RESOURCES: The [place] , [facility] THE HOPE Connection , [facility] Bereavement Center , [place] HEARING DISORDER RESOURCES: [place] Telephone Access Program Deaf and Disabled Telecommunications Program www.ddtp.[facility].ca.gov HearRx Hearing Centers ([place]) Better Hearing Systems , [facility] ([facility] Agency on Deafness) V/ TTY; Icu Clerk , Yazmin [facility] Hearing Foundation -low income hearing aid assistance www.[facility] eucl[facility] hospitalringfoundation.org [place] Hearing Care , Mariela HELP AT HOME CAREGIVER SUPPORT: In Home Support Services (Must have Medi-Cheri to be eligible) *Ask for a list of agencies that provide services to assist with care in the home. Local Senior Centers also have listings of care providers. HOME SAFETY MODIFICATIONS AND EQUIPMENT: Senior centers have additional referrals. [place] [employer] and Webinar.ru Investment Dept. Handyworker Program (low income) or Visit http://hcidla.[facility].org/ljh-tmdiem-vt for more information National Seating and Mobility and/or ; Forever Active www.foreveractivemed.drop.io Stay Home Safe www.Stayhomesafe.drop.io LIFE ALERT RESPONSE SYSTEM: NoteVault Lifeline Services 631-068-8965 www. LifeShareNotes.com.drop.io Life Alert 132-602-1061 www.lifeiSupplirt.drop.io Life Station 279-428-5593 www.[facility] Directionsation.com Safe Return 928-968-1101 www.alz.or/safereturn Cell Phones for Seniors www.Sevar Consult MEALS AND FOOD PROGRAMS: [place] Meals on Wheels [phone] [place] Meals on Wheels [phone] [facility] [phone] [place] to the Homebound [phone] [place] to the Homebound [phone] [place] to the Homebound [phone] [facility] to the Homebound [phone] [facility] Cardoso [phone] [facility] [phone] ONE Generation [phone] [facility] [phone] [facility] [phone] Meals on Wheels [phone] For all ages: $6.85/ meal w side. Delivered M-F from 10 am-1pm. Application and payment is done over the phone. Frozen meals available for weekends. Emergency Food [facility] [phone] [facility] Chairman & Chief Executive Officer [phone] [facility] [phone] [facility] Brown bag lunches [phone] [facility] [phone] MEAL/GROCERY DELIVERY PROGRAMS: [facility] Association Gourmet Meals [phone]- [facility] [phone]- [facility] Magic Kitchen [phone] Moms Meals [phone] (ask Martínez for Discount Select grocery stores may provide delivery. MEDICAL INSURANCE SUPPORT SERVICES: Center for Health Care Rights [phone] Health Insurance Counseling/Advocacy Programs (HICAP)-Must have Medicare. Offers counseling for Medi-Cheri eligibility [phone] Department of Public Chairman & Chief Executive Officer [phone] www.[facility]ca.gov Medicare 289-564-2380 www.socialsecurity.org Social Security [phone] SENIOR ACTIVITY PROGRAMS: *Contact a local senior center, adult school, recreation facility or community college for education, fitness, recreation, and social programs. Aquatic Therapy and Adapted Exercise programs through UN [phone] [facility] [phone] www.[facility]/encore H2U- Senior Friends [phone] [place] Senior Programs [phone] www.oasisnet.org Suddenly 65 www.ldomzhpj49.com SENIOR CENTERS: [facility] [phone] [facility] [phone] [facility] [phone] [facility] [phone] [facility] [phone] [facility] [phone] [facility] [phone] [facility] [phone] One GenerationLeroy [facility] [phone] [facility] [phone] [facility] [phone] [facility] [phone] [facility] [phone] TRANSPORTATION: Local [facility] may have applications for transportation programs and additional resources. ACCESS Services [phone] Transportation for seniors and disabled persons 7 days a week requiring 254 hr. advance reservation. Must apply and register for program bernard eligible. Nextly [phone] or [phone] Transportation for seniors and persons with ADA card/metro disabled card in the [facility]. M-F only. Must register for services. ONE GENERATION [phone] Serves 65 years + in conjunction with Xfire program. Must be registered with both programs. A to B Transport [phone] Provides wheelchair/gurney van service. Adult Medical Transport [phone] Accepts [facility] with prior authorization. [facility] [phone] Provides wheelchair Transport. [facility] Wide Transportation [phone] Provides gurney service Gentle [facility] [phone] Gurney Transport. [facility] Transportation [phone] wheelchair & gurney transport [facility] Transportation [phone] wheelchair & gurney transport [place] Non-Emergency Transport [phone] wheelchair & gurney transport [facility] Short Term Transportation primarily for adults with disabilities on social security income. Nominal fee may apply and a reservation is required. Wyldfire [employer] [phone] or [phone] [facility] [phone] [place] [address] Referral Services -[phone] For additional programs & services VETERANS RESOURCES: Submissions for Aid and Attendance should be done directly to [facility] office locatd at : [place] [phone] [facility] [phone] National Caregiver Support Line [phone] [facility] Veterans Services Field Office [phone] [place] Department of Affairs [phone] Pension Information [phone]
--- NOTE | 2022-07-04 12:37 | NUR ---
RN NOTE F/C REMOVED, PATIENT TOLERATED PROCEDURE WELL. WILL MONITOR FOR S/SX OF URINARY RETENTION.
[2022-07-04] MEDS: HYDROMORPHONE 1 MG/1 ML DISP.SYRIN IM/IV/SC PRN (13:46)
--- NOTE | 2022-07-04 18:44 | NUR ---
RN CLOSING NOTE Patient in bed awake. A/O x4, verbally responsive and able to make needs known. Patient stable in room air, breathing even and unlabored. On Tele monitoring showing SR/ST, HR @105. IV access on right hand #18G, saline locked. Surgical dressing on left knee C/D/I. Safety measure in place, bed in low and locked position, side rails up X2, call light placed within easy reach. Will endorse to next shift for continuity of care.
--- NOTE | 2022-07-04 19:00 | NUR ---
MS JEANA INITIAL NOTES Received report from am nurse Patti and saw patient in bed on semi fowlers position with side rails x2 up . Pt is alert oriented X 4 , sammarinese speaking lady but understood simple puerto rican . Denies any pain or any discomfort. Dressing dry and intact. Able to verbalize her needs. Encourage her to use the call light if she needs assistance or needs the nurse. Kept her warm and comfortable at all times. Will continue monitoring. place call light at reach.
[2022-07-04 20:00] VITALS: BP 150/92
--- NOTE | 2022-07-04 21:40 | NUR ---
multimedia specialist notes Got called from Leon Samaniego /SARAH , the one that doing the hemodialysis catheter insertion. Gathered all the supplies that he needs. I also call the family of the patient for consent.
--- NOTE | 2022-07-04 21:50 | NUR ---
MS JEANA NOTES called the son of the patient and spoke to Sheng Giles and Saul ([phone] ) for consent for hemodialysis catheter insertion. They agreed but they don't want to put the catheter to patient neck . they agreed to put on patient groin or arms.
--- NOTE | 2022-07-05 04:29 | NUR ---
MS JEANA NOTES PT REMAINS SLEEPING COMFORTABLY IN BED WITHOUT ANY DISCOMFORT NOTED. KEPT HER WARM AND COMFORTABLE AT ALL TIMES. WILL CONTINUE MONITORING.
--- NOTE | 2022-07-05 07:17 | NUR ---
MS PHYSIOLOGICAL CHEMIST CLOSING NOTES PT BACK TO REST AFTER MORNING CARE DONE. STABLE THROUGHOUT THE NIGHT . NO SIGNS OF ANY PAIN OR DISCOMFORT. KEPT HER WARM AND COMFORTABLE AT ALL TIMES. REPOSITION FOR COMFORT. BED IN LOW AND LOCK IN POSITION WITH SIDE RAILS X2 UP AND BED ALARM SET FOR SAFETY. PLACE CALL LIGHT AT REACH.
[2022-07-05] MEDS: PANTOPRAZOLE 40 MG TABLET.DR PO SCH (07:43)
--- NOTE | 2022-07-05 07:46 | NUR ---
MS RN OPENING NOTE POD # 2 Received patient in bed awake, a/o x 4, verbally responsive and able to make needs known. Patient denies any pain at the moment. Patient stable on room air, breathing even and unlabored. on Tele monitoring showing SR, HR in 90s. Removed telemetry per MD order. Observed pt to have IV access on right hand #18G, saline locked, flushes well, patent and intact. Elastic bandage on left knee surgical wound and wearing leg brace. Safety measures in place: bed in low and locked position; side rails up X2; call light placed within easy reach. Will continue to care for and monitor patient per hospitalist provider's POC.
[2022-07-05 08:00] VITALS: BP 136/91
[2022-07-05] MEDS ORDERED: RIVAROXABAN 10 MG TABLET PO SCH (08:00)
[2022-07-05] MEDS: CALCIUM CARBONATE 500 MG TAB.CHEW PO SCH (08:28)
[2022-07-05] MEDS ORDERED: RIVA10TA PO (10:55)
--- NOTE | 2022-07-05 15:10 | NUR ---
MS QUALITY SYSTEMS TECHNICIAN TO HOME NOTE Patient tolerated removal of PIV catheter from right hand, catheter fully intact without any complications. Surgical dressing to left knee is clean, dry, intact and covered with clean/dry tarun wrap and leg brace. Patient demonstrated understanding of home care discharge instructions using teach back method in her own words. Also discharge home care instructions printed in Italian which is patient's first language. Patient signed that she had all of her listed belongings/valuables in her possession upon discharge from the hospital. Patient departed from the [facility] via gurney to ambulance bound for her home at 15:00 hours accompanied by her , Juan Carlos, and research associate molecular biology.
== END 2022-07-05 15:00 | disposition home or self-care (01) | DRG 470 ==
LOC: DS 05:08 → MED 05:10
PROVIDERS: ADMIT Nurse Practitioner Acute Care; ATTEND Nurse Practitioner Acute Care
PROC: 0SRD0J9 Replacement of Left Knee Joint with Synthetic Substitute, Cemented, Open Approach (ICD-10-PCS; principal; 2022-07-03)
DX: M17.12 Unilateral primary osteoarthritis, left knee (principal); Z79.82 Long term (current) use of aspirin; Z87.11 Personal history of peptic ulcer disease; I10 Essential (primary) hypertension; Z79.899 Other long term (current) drug therapy
CPT/HCPCS: 36415; 85027-TC; 85610-TC; 85730-TC; 86850-TC; 87081-TC; 88305-TC; 88311-TC; 97112-TC; 97116-TC; 97530-TC; 97760-TC; A4217; C1713; C1776; G0378; J0330; J0690; J1100; J1170; J2250; J2405; J2704; J3010; J3490; J7030; J7040; J7060; L1830; Q0163